=== PATIENT | female | born 1995 | race Caucasian/White ===

== ENCOUNTER 2019-03-13 18:57 | Emergency (ER) | payer BC ==
[~2019-03-13] VITALS: Ht 162.6 cm; Wt 53.2 kg
[2019-03-13 19:04] VITALS: Ht 162.6 cm; Wt 53.2 kg
[2019-03-13 19:43] LABS: BASOPHILS 0.2 % (0-2); EOSINOPHILS 0.2 % (0-7); HEMATOCRIT 38.7 % (36.0-48.0); HEMOGLOBIN 13.4 g/dL (12-16); IMMATURE GRANULOCYTES 0.3 % (0-5); LYMPHOCYTES 7.1 % (15-50); MCHC 34.6 g/dL (31.0-37.0); MCV 89.6 fL (80.0-100.0); MEAN PLATELET VOLUME 10.7 fL (7.4-10.4); MONOCYTES 9.5 % (2-11); NEUTROPHILS 82.7 % (40-80); PLATELET COUNT 256 10x3/uL (130-400); RBC 4.32 10x6/uL (4.00-5.40); RDW 11.9 % (11.5-14.5); WBC 11.2 10x3/uL (4.8-10.8)
[2019-03-13 20:11] LABS: ALBUMIN 4.1 g/dL (3.4-5.0); ALKALINE PHOSPHATASE 92 U/L (46-116); ALT (SGPT) 24 U/L (10-68); CALC OSMOLALITY 272 mosm/kg (275-300); CALCIUM 8.9 mg/dL (8.5-10.1); CARBON DIOXIDE 22.5 mmol/L (21.0-32.0); CHLORIDE - SERUM 101 mmol/L (98-107); GLUCOSE 116 mg/dL (74-106); POTASSIUM - SERUM 3.8 mmol/L (3.5-5.1); PROTEIN - SERUM 7.7 g/dL (6.4-8.2); SODIUM 136 mmol/L (136-145); UREA NITROGEN 12 mg/dL (7-18); eGFR NON AFRICAN AMERICAN 74 mL/min (90-120)
[2019-03-13 20:19] LABS: AMYLASE - SERUM 63 U/L (25-115); LIPASE 135 U/L (73-393); TROPONIN-I < 0.017 ng/mL (0.000-0.060)
[2019-03-13 20:27] LABS: HCG SERUM NEGATIVE (NEGATIVE)
[2019-03-13] MEDS ORDERED: ZOFRAN ODT4 MG/UDTAB PO (21:42)
[2019-03-13] MEDS ORDERED: FLAGYL500 MG PO (21:42)
[2019-03-13] MEDS ORDERED: CIPRO500 MG PO (21:42)
[2019-03-13] MEDS ORDERED: BENTYL 20 MG TA20 MG PO (21:42)
[2019-03-13 22:57] VITALS: BP 117/65
== END 2019-03-13 22:57 | disposition home or self-care (01) ==
LOC: D.ER 18:57
PROVIDERS: Emergency Medicine
DX: K52.9 Noninfective gastroenteritis and colitis, unspecified (principal); R10.9 Unspecified abdominal pain; R11.2 Nausea with vomiting, unspecified